=== PATIENT | male | born 1950 | race African-American/Black ===

== ENCOUNTER 2019-11-09 12:41 | Emergency (ER) | payer MEDICARE ==
[~2019-11-09] VITALS: Ht 172.7 cm; Wt 84.0 kg
[2019-11-09 12:52] VITALS: BP 147/74
[2019-11-09] MEDS ORDERED: IBUPROFEN 600MG TABLET PO ONE (15:15)
[2019-11-09] MEDS ORDERED: LIDOCAINE HCL/EPINEPHRINE 1%-EPI 1:100,000 20 ML VIAL INFIL ONE (15:15)
== END 2019-11-09 15:59 | disposition home or self-care (01) ==
LOC: ER 13:09
DX: M70.21 Olecranon bursitis, right elbow (principal); Z98.890 Other specified postprocedural states; Y93.89 Activity, other specified
CPT/HCPCS: 10060; 99282; J3490; 99281

== ENCOUNTER 2024-09-08 19:41 | Emergency (ER) | payer MEDICARE ==
[~2024-09-08] VITALS: Ht 172.7 cm; Wt 81.4 kg
[2024-09-08 20:56] VITALS: BP 146/82; O2SAT 99
[2024-09-08] MEDS ORDERED: CLOT15CR27 TP (20:58)
[2024-09-08] MEDS ORDERED: TERB250T88 MT (20:58)
[2024-09-08 21:12] VITALS: PULSE 80; RESP 18; TEMP 36.94740; O2SAT 99
== END 2024-09-08 21:22 | disposition home or self-care (01) ==
LOC: ER 19:41
DX: B35.6 Tinea cruris (principal)
CPT/HCPCS: 99282